=== PATIENT | male | born 1950 | race Caucasian/White ===

== ENCOUNTER 2017-06-03 07:13 | Day surgery (SDC) | payer OTHER, BC ==
[2017-06-02 14:13] VITALS: BMI 52.3
[2017-06-03] MEDS ORDERED: LIDOCAINE HCL 2% (20ML MULTI-DOSE VIAL) NR ONE (08:13)
[2017-06-03] MEDS ORDERED: PROPOFOL 20 ML ONE ×3 (08:13)
[2017-06-03 08:56] VITALS: TEMP 97.5
[2017-06-03 09:48] VITALS: BP 102/51; PULSE 54
--- NOTE | 2017-06-04 14:28 | PATH ---
Surgical Pathology Report Patient Name: SOSA SCHAFER [facility]. Rec. #: [id number] /Age/Gender: 1950 (Age: 67) / M Account: [id number] Location: [facility]-ENDOSCOPY Taken: 06/03/2017 Received: 06/03/2017 Reported: 06/04/2017 Physicians: Renan Orellana M.D. Specimen(s) Received A: ASCENDING COLON POLYP B: BX HEPATIC FLEXURE POLYP C: POLYP SIGMOID D: RECTAL POLYP Clinical History History of adenoma Polyps, lipoma, diverticulosis Final Diagnosis A. ASCENDING COLON, POLYP, BIOPSY: TUBULAR ADENOMA. B. COLON, HEPATIC FLEXURE, POLYP, BIOPSY: POLYPOID COLONIC MUCOSA WITH PROMINENT LYMPHOID AGGREGATE AND FOCAL SUPERFICIAL HYPERPLASTIC FEATURES. C. SIGMOID COLON, POLYP, BIOPSY: HYPERPLASTIC POLYP. D. RECTUM, POLYP, BIOPSY: HYPERPLASTIC POLYP. Electronically Signed Mary Simms M.D. Gross Description A. Received in formalin, labeled "biopsy ascending colon polyp" are 2 vail, irregular portions of soft tissue averaging 0.2 cm. in greatest dimension. The specimens are submitted in toto in one cassette. B. Received in formalin, labeled "biopsy hepatic flexure polyp" are 3 vail, irregular portions of soft tissue ranging from 0.2-0.4 cm. in greatest dimension. The specimens are submitted in toto in one cassette. C. Received in formalin, labeled "biopsy sigmoid polyp" are 3 vail, irregular portions of soft tissue ranging from 0.2-0.3 cm. in greatest dimension. The specimens are submitted in toto in one cassette. D. Received in formalin, labeled "biopsy rectal polyp" is a vail, irregular portion of soft tissue measuring 0.3 cm. in greatest dimension. The specimen is submitted in toto in one cassette. 06/03/201706/03/2017
== END 2017-06-03 09:51 | disposition home or self-care (01) ==
LOC: JASU-ENDO 07:13
PROVIDERS: ATTEND Internal Medicine Gastroenterology
PROC: 0DBL8ZX Excision of Transverse Colon, Via Natural or Artificial Opening Endoscopic, Diagnostic (ICD-10-PCS; 2017-06-03)
PROC: 0DBN8ZX Excision of Sigmoid Colon, Via Natural or Artificial Opening Endoscopic, Diagnostic (ICD-10-PCS; 2017-06-03)
PROC: 0DBP8ZX Excision of Rectum, Via Natural or Artificial Opening Endoscopic, Diagnostic (ICD-10-PCS; 2017-06-03)
PROC: 0DBK8ZX Excision of Ascending Colon, Via Natural or Artificial Opening Endoscopic, Diagnostic (ICD-10-PCS; principal; 2017-06-03 08:00)
DX: Z12.11 Encounter for screening for malignant neoplasm of colon (principal); Z86.010 Personal history of colon polyps; Z80.0 Family history of malignant neoplasm of digestive organs; D12.2 Benign neoplasm of ascending colon; D12.5 Benign neoplasm of sigmoid colon; D12.3 Benign neoplasm of transverse colon; K62.1 Rectal polyp; K64.8 Other hemorrhoids; K57.30 Diverticulosis of large intestine without perforation or abscess without bleeding
CPT/HCPCS: 88305-TC

== ENCOUNTER 2021-12-13 04:36 | Day surgery (SDC) | payer OTHER, BC ==
[2021-12-11 09:11] VITALS: BMI 37.3
[2021-12-13 10:21] VITALS: TEMP 98.6
[2021-12-13 12:07] VITALS: BP 125/59; PULSE 52
== END 2021-12-13 12:10 | disposition home or self-care (01) ==
LOC: JASU-ENDO 04:36
PROVIDERS: ATTEND Internal Medicine Gastroenterology
PROC: 0DBL8ZX Excision of Transverse Colon, Via Natural or Artificial Opening Endoscopic, Diagnostic (ICD-10-PCS; 2021-12-13)
PROC: 0DBP8ZX Excision of Rectum, Via Natural or Artificial Opening Endoscopic, Diagnostic (ICD-10-PCS; 2021-12-13)
PROC: 0DBH8ZX Excision of Cecum, Via Natural or Artificial Opening Endoscopic, Diagnostic (ICD-10-PCS; 2021-12-13)
PROC: 0DBK8ZX Excision of Ascending Colon, Via Natural or Artificial Opening Endoscopic, Diagnostic (ICD-10-PCS; principal; 2021-12-13 11:00)
DX: Z12.11 Encounter for screening for malignant neoplasm of colon (principal); D12.0 Benign neoplasm of cecum; D12.3 Benign neoplasm of transverse colon; D12.8 Benign neoplasm of rectum; K57.30 Diverticulosis of large intestine without perforation or abscess without bleeding; K64.8 Other hemorrhoids; Z86.010 Personal history of colon polyps; Z80.0 Family history of malignant neoplasm of digestive organs; Z83.71 Family history of colonic polyps
CPT/HCPCS: 88305-TC